=== PATIENT | male | born 1955 | race Caucasian/White ===

== ENCOUNTER 2022-07-08 14:54 | Emergency (ER) | payer OTHER, MEDICAID, SELFPAY ==
[2022-07-08] VITALS (8 sets, daily range): BP systolic 133–166; BP diastolic 83–93; PULSE 65–78; RESP 15–24; TEMP 36.6; O2SAT 97–99; BMI 21.1
--- NOTE | 2022-07-08 15:11 | DI.RAD.S_ITS ---
PROCEDURE: XR CHEST 1V INDICATIONS: chest pain TECHNIQUE: One view of the chest was acquired. COMPARISON: None. FINDINGS: Surgical changes and devices: None. Lungs and pleura: Lungs are clear. No pleural effusions or pneumothorax. Mediastinum: Mediastinal contours appear normal. Heart size is normal. Bones and chest wall: No suspicious bony lesions. Overlying soft tissues appear unremarkable. IMPRESSION: No acute cardiopulmonary findings. Dictated by: Bev Morton M.D. on 07/08/2022 at 15:37 Approved by: Bev Morton M.D. on 07/08/2022 at 15:37
[2022-07-08 15:22] LABS: Add Manual Diff / Slide Review NO; Basophils Absolute Auto 0 /uL (0-100); Basophils Percent Auto 0.4 % (0-2); Eosinophils Absolute Auto 0 /uL (0-450); Eosinophils Percent Auto 0.2 % (2-4); Hematocrit 37.6 % (41-53); Lymphocytes Absolute Auto 1100 /uL (1100-4500); Lymphocytes Percent Auto 12.2 % (25-40); Mean Corpuscular HGB Conc 34.5 % (30-36); Mean Corpuscular Hemoglobin 31.8 PG (26-34); Monocytes Absolute Auto 900 /uL (0-900); Monocytes Percent Auto 9.8 % (3-14); Neutrophils Absolute Auto 6700 /uL (1500-7000); Neutrophils Percent Auto 77.4 % (50-75); Platelet Count 382 X10^3/uL (150-400); Red Blood Cell Count 4.09 X10^6/uL (4.5-5.9); Red Cell Distribution Width 13.4 % (11.6-14.8); White Blood Cell Count 8.7 X10^3/uL (4.5-11.0)
[2022-07-08 15:27] LABS: Prothrombin Time 10.9 SECONDS (10.1-12.7)
[2022-07-08 15:30] LABS: PTT Partial Thromboplastin Tim 34 SECONDS (26-36)
[2022-07-08 15:35] LABS: Alanine Aminotransferase 38 IU/L (<50); Albumin 4.4 g/dL (3.5-5.0); Albumin Globulin Ratio 1.3 (1.0-2.8); Alkaline Phosphatase 101 U/L (38-126); Aspartate Aminotransferase 66 IU/L (17-59); BUN Creatinine Ratio 10.5 (6-22); Bilirubin Total 0.6 mg/dL (0.2-1.3); Blood Urea Nitrogen 6 mg/dL (9-20); Calcium 8.9 mg/dL (8.4-10.2); Carbon Dioxide 28 mmol/L (22-32); Chloride 89 mmol/L (98-107); Creatine Kinase 172 U/L (55-170); Estimated Glomerular Filt Rate > 60 mL/min (>60); Globulin 3.5 g/dL (1.7-4.1); Glucose 127 mg/dL (80-110); HEMOLYSIS < 15 (0-50); Lipase 113 U/L (23-300); Magnesium 1.7 mg/dL (1.6-2.3); Potassium 4.1 mmol/L (3.4-5.1); Sodium 125 mmol/L (137-145); Total Protein 7.9 g/dL (6.3-8.2)
--- NOTE | 2022-07-08 15:35 | PC.NURSE ---
Pt reports 4-5 episodes of chest pressure in the last 2 weeks that come on suddenly either at rest or with activity. Last episode was at 0400 this morning. Pt reports SOB, N&V with some episodes. Pt states he has doubled his alcohol intake in the last few weeks from three 12 oz beers to 6 12 oz beers a day. Pt also reports taking some organic supplement from [employer] that has made episodes worse. Pt takes 20mg of lisinopril. Currently denies chest discomfort.
[2022-07-08 15:46] LABS: Troponin I < 0.012 ng/mL (0.01-0.034)
[2022-07-08 15:50] LABS: CKMB % Relative Index 2.2 % (1.5-5.0)
--- NOTE | 2022-07-08 16:28 | ED.CHESTPAIN ---
HPI - Chest Pain General Chief Complaint: Chest Pain Stated Complaint: Chest pains Time Seen by Provider: 07/08/22 16:16 Source: patient Mode of arrival: Ambulatory Limitations: no limitations History of Present Illness HPI narrative: Robson Bond is a 66-year-old man with hypertension, alcohol use disorder, cigarette dependence and no other chronic health conditions who comes to the emergency department with a severe episode of chest pain lasting about 45 minutes last night. He was lying in bed and awoke with severe chest pain that bothered him quite a bit for about 45 minutes. With some deep breathing exercises he was able to go back to sleep ultimately. When he woke up in the morning this morning the pain had resolved but he was very nervous about it so he called 911 and the paramedics came to his home on [facility] and told him that his EKG looked normal but that he ought to have some sort of evaluation today so he caught the very over here and came into the ER for evaluation. He has had no recurrent chest pain today. He says he does periodically drink alcohol to excess but has not done this for some weeks. Has had some significant dental problems including a current abscess in the left upper part of his mouth that is drained spontaneously. He has not had a fever or URI symptoms. During the severe episode of chest pain last night he had some shortness of breath, but no nausea or sweats. A couple of days ago he had a spontaneous episode of vomiting which he can not explain and was very unusual for him. He has no first-degree relatives with early coronary disease. Related Data Previous Rx's Medication Instructions Recorded lisinopril 20 mg tablet 20 mg PO DAILY #90 tabs 02/20/22 amoxicillin 500 mg capsule 500 mg PO TID 10 days #30 caps 07/08/22 Allergies Allergy/AdvReac Type Severity Reaction Status Date / Time No Known Drug Allergies Allergy Verified 07/08/22 15:11 Review of Systems Review of Systems Narrative: Complete review of systems is negative other than as noted above. Patient History Medical History (Updated 07/08/22 @ 16:56 by Lui sF Cochran MD) Hypertension Social History Smoking Status: Current every day smoker Smoking Status: Current every day smoker alcohol intake frequency: 3 or more drinks per day Alcohol type: beer Substance Use Type: does not use Exam Narrative Exam Narrative: GENERAL: Alert, cooperative and in no distress. HEAD: Atraumatic. Normocephalic. EYES: Sclera are clear without icterus. Extraocular movements are full. ENT: No rhinorrhea. Oropharynx is moist. Mouth exam is benign. NECK: Supple. Full range of motion. CARDIOVASCULAR: Normal rate and rhythm without murmur gallop or rub. Chest is not tender to palpation RESPIRATORY: Clear to auscultation. Breath sounds equal bilaterally. No wheezes, rales, or rhonchi. GASTROINTESTINAL: Abdomen soft, non-tender, nondistended. EXTREMITIES: No edema, full range of motion. No obvious trauma NEURO: Nonfocal examination, normal speech, normal gait. SKIN: No rash or erythema of visible areas PSYCH: Normally oriented. Normal range of affect. Appropriate behavior Initial Vital Signs Initial Vital Signs: Vital Signs Temperature 97.9 F 07/08/22 15:06 Pulse Rate 76 07/08/22 15:06 Respiratory Rate 15 07/08/22 15:06 Blood Pressure 166/93 H 07/08/22 15:06 Pulse Oximetry 98 07/08/22 15:06 Oxygen Delivery Method 07/08/22 15:06 Scores HEART Score Heart Score history: Moderately Suspicious Heart Score EKG: Normal Heart Score Age: 45-64 years old Heart Score risk factors: 1-2 risk factors Heart Score troponin: < or = to normal limit Heart Score Total: 3 Course Orders Ordered: ED Orders 07/08/22 15:11 XR chest 1V Stat EKG-12 Lead Stat 07/08/22 15:13 Complete Blood Count AUTO DIFF Stat Comprehensive Metabolic Panel Stat Lipase Stat Magnesium Stat Partial Thromboplastin Time Stat Prothrombin Time INR Stat Troponin & CK Cardiac Panel Stat Vital Signs Vital signs: Vital Signs - 8 hr 07/08/22 15:06 Temperature 97.9 F Pulse Rate 76 Respiratory Rate 15 Blood Pressure 166/93 H Pulse Oximetry 98 Oxygen Delivery Method Room Air MDM - Chest Pain Lab Data Result diagrams: 07/08/22 15:13 07/08/22 15:13 Labs: Lab Results 07/08/22 07/08/22 07/08/22 Range/Units 15:13 15:13 15:13 WBC 8.7 (4.5-11.0) X10^3/uL RBC 4.09 L (4.5-5.9) X10^6/uL Hgb 13.0 L (13.5-17.5) g/dL Hct 37.6 L (41-53) % MCV 92.0 (80-100) fL MCH 31.8 (26-34) PG MCHC 34.5 (30-36) % RDW 13.4 (11.6-14.8) % Plt Count 382 (150-400) X10^3/uL Neut % (Auto) 77.4 H (50-75) % Lymph % (Auto) 12.2 L (25-40) % Dickens % (Auto) 9.8 (3-14) % Eos % (Auto) 0.2 L (2-4) % Baso % (Auto) 0.4 (0-2) % Neut # (Auto) 6700 (2515-1760) /uL Lymph # (Auto) 1100 (5684-5690) /uL Dickens # (Auto) 900 (0-900) /uL Eos # (Auto) 0 (0-450) /uL Baso # (Auto) 0 (0-100) /uL PT 10.9 (10.1-12.7) SECONDS INR 1.0 (0.9-1.3) APTT 34 (26-36) SECONDS Sodium 125 L (137-145) mmol/L Potassium 4.1 (3.4-5.1) mmol/L Chloride 89 L (98-107) mmol/L Carbon Dioxide 28 (22-32) mmol/L BUN 6 L (9-20) mg/dL Creatinine 0.57 L (0.66-1.25) mg/dL Estimated GFR > 60 (>60) mL/min BUN/Creatinine Ratio 10.5 (6-22) Glucose 127 H (80-110) mg/dL Calcium 8.9 (8.4-10.2) mg/dL Magnesium 1.7 (1.6-2.3) mg/dL Total Bilirubin 0.6 (0.2-1.3) mg/dL AST 66 H (17-59) IU/L ALT 38 (<50) IU/L Alkaline Phosphatase 101 (38-126) U/L Total Creatine Kinase 172 H (55-170) U/L CK-MB (CK-2) 3.70 H (<2.37) ng/mL CK-MB (CK-2) Rel Index 2.2 (1.5-5.0) % Troponin I < 0.012 (0.01-0.034) ng/mL Total Protein 7.9 (6.3-8.2) g/dL Albumin 4.4 (3.5-5.0) g/dL Globulin 3.5 (1.7-4.1) g/dL Albumin/Globulin Ratio 1.3 (1.0-2.8) Lipase 113 (23-300) U/L Imaging Data Chest x-ray: Radiologist's Impression: IMPRESSION:? No acute cardiopulmonary findings. ? ? Dictated by: Bev Morton M.D. on 07/08/2022 at 15:37 ? ? Approved by: Bev Morton M.D. on 07/08/2022 at 15:37 ? ECG Data Interpretation: EKG obtained at 3:14 p.m. shows a sinus rhythm at 71 beats per minute. Poor R-wave progression but otherwise normal EKG with no acute ischemic changes MDM Narrative Medical decision making narrative: 66-year-old gentleman with no known coronary disease but risk factors of smoking and hypertension. Troponin is negative and EKG is nonischemic. I think outpatient workup is appropriate for this man. Heart score of 3. He has low-sodium today which is a little difficult to explain and I am was relieved to see that there is no tumor on the chest x-ray. He has a long history of smoking cigarettes. I think further workup for this can be accomplished as an outpatient. Also has a dental abscess. This is draining spontaneously and is up in the left upper part of his mouth adjacent tooth 12. Or 13. He seems very motivated to quit smoking. Discharge Plan Departure Patient Disposition: Home Clinical Impression: Chest pain, Abscess, dental, Cigarette nicotine dependence, Chronic hyponatremia Activity Restrictions/Additional Instructions: Fortunately, I do not think that the chest pain event last night represents an acute heart attack. However, it may represent a heart attack on the horizon and I think she taken very seriously. I strongly encouraged her to quit smoking. To this end I recommend nicotine patches once a day to be worn during the day and off at nighttime. You can also use nicotine gum with the chew and park method we discussed. You can have as many of these during the day as you want. I also recommend that you call 1 772-FIKH-VDA for further advice regarding smoking cessation. You also have a dental infection and I recommend that you take the amoxicillin 500 mg 3 times a day for 10 days. You also have low sodium. This can be caused by many different things and requires further investigation that can sometimes be complex. I strongly urge you to follow-up with your primary care doctor in the coming days to initiate an investigation as to why your sodium is low. (it is rarely as simple as increasing the sodium in your diet, and I do not recommend that) If your chest pain recurs, I recommend you call 911 immediately. For the time being until told otherwise by your doctor, I recommend an 81 mg aspirin daily. Continue to take your blood pressure medicine lisinopril. You certainly also need further investigation regarding the chest pain event such as a treadmill stress test or something of that nature. You and your primary care doctor can decide what is best. Prescriptions: New amoxicillin 500 mg capsule 500 mg PO TID 10 Days Qty: 30 0RF No Action lisinopril 20 mg tablet 20 mg PO DAILY Qty: 90 3RF Referrals: Loc Dawson, [Primary Care Provider] -
== END 2022-07-08 17:15 | disposition home or self-care (01) ==
PROVIDERS: Emergency Provider Family Medicine Addiction Medicine; PCP Family Medicine
DX: R07.9 Chest pain, unspecified (principal); K04.7 Periapical abscess without sinus; E87.1 Hypo-osmolality and hyponatremia; F17.210 Nicotine dependence, cigarettes, uncomplicated
CPT/HCPCS: 36415; 71045; 80053; 82550; 82553; 83690; 83735; 84484; 85025; 85610; 85730; 93005; 93010; 99284

== ENCOUNTER → 2022-08-05 10:41 | Outpatient (CLI) | payer OTHER, MEDICAID, SELFPAY ==
[2022-08-05 20:24] LABS: Add Manual Diff / Slide Review NO; Basophils Absolute Auto 0 /uL (0-100); Basophils Percent Auto 1.2 % (0-2); Eosinophils Absolute Auto 100 /uL (0-450); Eosinophils Percent Auto 3.8 % (2-4); Hematocrit 37.2 % (41-53); Hemoglobin 12.9 g/dL (13.5-17.5); Lymphocytes Absolute Auto 1200 /uL (1100-4500); Lymphocytes Percent Auto 37.7 % (25-40); Mean Corpuscular HGB Conc 34.7 % (30-36); Mean Corpuscular Hemoglobin 32.2 PG (26-34); Mean Corpuscular Volume 92.7 fL (80-100); Monocytes Absolute Auto 300 /uL (0-900); Monocytes Percent Auto 10.7 % (3-14); Neutrophils Absolute Auto 1500 /uL (1500-7000); Neutrophils Percent Auto 46.6 % (50-75); Platelet Count 437 X10^3/uL (150-400); Red Blood Cell Count 4.01 X10^6/uL (4.5-5.9); Red Cell Distribution Width 14.2 % (11.6-14.8); White Blood Cell Count 3.1 X10^3/uL (4.5-11.0)
[2022-08-05 21:00] LABS: Alanine Aminotransferase 26 IU/L (<50); Albumin 4.4 g/dL (3.5-5.0); Albumin Globulin Ratio 1.3 (1.0-2.8); Alkaline Phosphatase 69 U/L (38-126); Aspartate Aminotransferase 41 IU/L (17-59); BUN Creatinine Ratio 9.6 (6-22); Bilirubin Total 0.7 mg/dL (0.2-1.3); Bilirubin Unconjugated 0.6 mg/dL (0.0-1.1); Blood Urea Nitrogen 5 mg/dL (9-20); Carbon Dioxide 25 mmol/L (22-32); Chloride 94 mmol/L (98-107); Estimated Glomerular Filt Rate > 60 mL/min (>60); Globulin 3.5 g/dL (1.7-4.1); Glucose 86 mg/dL (80-110); HEMOLYSIS 15 (0-50); Hemoglobin A1C% w Est Avg Glu 5.1 % (4.0-6.0); Potassium 4.8 mmol/L (3.4-5.1); Sodium 129 mmol/L (137-145); Total Protein 7.9 g/dL (6.3-8.2)
[2022-08-05 21:03] LABS: Cholesterol 175 mg/dL (140-199); HDL Cholesterol 97 mg/dL (40-60); LDL Cholesterol Calculated 66 mg/dL (<100); Triglycerides 61 mg/dL (35-150)
== END ==
PROVIDERS: PCP Family Medicine; Visit Provider Family Medicine
DX: F10.20 Alcohol dependence, uncomplicated (principal); F17.210 Nicotine dependence, cigarettes, uncomplicated; I10 Essential (primary) hypertension; R07.89 Other chest pain; R07.9 Chest pain, unspecified
CPT/HCPCS: 80053; 80061; 80076; 83036; 85025